=== PATIENT | male | born 2000 | race Caucasian/White ===

== ENCOUNTER 2022-09-28 11:39 | Outpatient (CLI) | payer OTHER, SELFPAY ==
--- NOTE | ~2022-09-28 | XR_ITS ---
EXAMINATION: XR ankle RT min 3V, XR foot RT min 3V DATE: 09/28/2022 12:06 INDICATION: Right ankle injury post fall down stairs 4 days prior TECHNIQUE: 1. Anteroposterior, mortise, additional oblique and lateral view of the right ankle were obtained. 2. Dorsoplantar, two oblique and lateral views of the right foot were obtained. COMPARISON: None. FINDINGS: Alignment of the right foot and ankle is normal. No fracture. Joint spaces are well maintained. No an kle joint effusion. Soft tissue swelling about the ankle, anteriorly as well as both the medial and l ateral malleoli. IMPRESSION: 1. No osseous abnormality at the right foot or ankle. Reviewed, dictated and finalized at location A. IMPRESSION: 1. No osseous abnormality at the right foot or ankle.
== END 2022-09-28 11:40 | disposition home or self-care (01) ==
PROVIDERS: PCP Internal Medicine; Visit Provider Internal Medicine
DX: S99.911A Unspecified injury of right ankle, initial encounter (principal)
CPT/HCPCS: 73610; 73630

== ENCOUNTER 2023-09-26 13:40 | Emergency (ER) | payer OTHER, SELFPAY ==
[2023-09-26] VITALS (12 sets, daily range): BP systolic 123–130; BP diastolic 76–85; PULSE 84–88; RESP 16–20; TEMP 36.2–37.4; O2SAT 95–100
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
[2023-09-26] MEDS: SODIUM CHLORIDE 0.9% IV 1,000 ML 150 ML IV CONT (14:08)
[2023-09-26] MEDS: ONDANSETRON INJ 4 MG/2 ML VIAL IV PUSH (14:09)
[2023-09-26] MEDS: fentaNYL CITRATE INJ (*CRX) 100 MCG/2 ML VIAL 50 MCG IV PUSH ×2 (14:10→14:33)
--- NOTE | 2023-09-26 15:33 | PC.NURSE ---
addendum 09-26-23 1400 pt refused kaufman cath placement.
== END 2023-09-26 14:54 | disposition short-term general hospital (02) ==
PROVIDERS: Emergency Provider Emergency Medicine; PCP Internal Medicine
DX: M54.6 Pain in thoracic spine (principal); M54.2 Cervicalgia; M25.511 Pain in right shoulder; R53.1 Weakness; R20.0 Anesthesia of skin; V28.49XA Other motorcycle driver injured in noncollision transport accident in traffic accident, initial encounter; F12.90 Cannabis use, unspecified, uncomplicated
CPT/HCPCS: 71045; 96361; 96374; 96375; 99285; J2405; J3010; J7030; L0150